=== PATIENT | female | born 1990 | race Caucasian/White ===

== ENCOUNTER 2023-08-17 08:15 | Inpatient (IN) ==
[2023-08-17] MEDS: Lactated Ringers 1000 ml BAG 1,000 ML IV ONE ×2 (08:46→11:12)
[2023-08-17] MEDS: Ondansetron 4 mg VIAL 2 MG/ML 2 ml VIAL IV ONE (08:49)
[2023-08-17] MEDS ORDERED: LORazepam 2 mg VIAL 1 ml IV PUSH SCH (09:00)
[2023-08-17 09:04] LABS: Hematocrit 43.2 % (35-45); Hemoglobin 14.4 g/dL (11.5-14.3); Red Blood Count 3.97 10^6/uL (3.63-4.92)
[2023-08-17 09:05] LABS: Mean Platelet Volume 8.4 fL (7.5-11.2); Platelet Count 160 10^3/uL (150-450); Red Cell Distribution Width 18.6 % (12-17)
[2023-08-17] MEDS: LORazepam 2 MG/ML 1 mL Syringe IV SCH (09:06)
[2023-08-17 09:18] LABS: INR 0.97 (0.83-1.13)
[2023-08-17 09:30] LABS: High Sens Troponin Baseline 4 pg/mL (<15); Mean Corpuscular Hemoglobin 36.2 pg (27-33); Mean Corpuscular Hgb Conc 33.3 g/dL (31-36); Mean Corpuscular Volume 108.7 fL (80-97)
[2023-08-17 09:32] LABS: ABS Lymphocytes 0.2 10^3/uL (1.0-4.8); ABS Neutrophils 5.8 10^3/uL (1.5-7.6); ABS Nucleated RBC 0.01 10^3/ul; Lymphocyte % 3.1 %; Nucleated Red Blood Cells % 0.2 %/100WBC (0.0-0.8)
[2023-08-17 09:50] LABS: ALT 73 U/L (7-52); AST 146 U/L (13-39); Alcohol, S < 13 mg/dL (<13); Alkaline Phosphatase 97 U/L (35-149); Anion Gap 38 mmol/L (2-16); Blood Urea Nitrogen 11 mg/dL (6-24); CO2 Carbon Dioxide 11 mmol/L (22-32); Calcium 10.3 mg/dL (8.6-10.3); Chloride 87 mmol/L (101-111); Creatinine, Serum 1.45 mg/dL (0.51-0.95); Glucose 221 mg/dL (70-100); Lipase 198 U/L (11.0-82.0); Magnesium 1.9 mg/dL (1.9-2.7); Potassium 4.9 mmol/L (3.5-5.0); Sodium 136 mmol/L (135-145); Total Bilirubin 1.3 mg/dL (0.2-1.0); Total Protein 9.9 g/dL (6.4-8.9); eGFR CKD-EPI 49.5 (>60)
[2023-08-17 10:00] LABS: Albumin 6.7 g/dL (3.2-5.2); Albumin/Globulin Ratio 2.1 (1-3); Globulin 3.2 g/dL (2-4)
[2023-08-17 10:23] LABS: High Sensitivity Troponin 1 Hr 4 pg/mL (<15)
[2023-08-17 10:48] LABS: Acetaminophen < 15 mcg/mL; Salicylate < 2.50 mg/dL (<30)
[2023-08-17 12:14] LABS: LDH 333 U/L (140-271)
[2023-08-17 12:20] LABS: Venous Bicarbonate HCO3 18.1 mmol/L (24-28)
[2023-08-17] MEDS: D5LR 1000 ml BAG 1,000 ML IV SCH (12:44)
[2023-08-17] MEDS ORDERED: Ondansetron 4 mg VIAL 2 MG/ML 2 ml VIAL IV PRN (12:55)
[2023-08-17] MEDS ORDERED: Senna TAB 8.6 mg TAB PO PRN (17:30)
[2023-08-17] MEDS ORDERED: Polyethylene Glycol 3350 17 GM PACKET PO PRN (17:31)
[2023-08-17 18:44] LABS: Albumin 4.5 g/dL (3.2-5.2); Albumin/Globulin Ratio 1.8 (1-3); Creatinine, Serum 0.69 mg/dL (0.51-0.95); Globulin 2.5 g/dL (2-4); Potassium 3.9 mmol/L (3.5-5.0); Total Bilirubin 1.2 mg/dL (0.2-1.0); eGFR CKD-EPI 118.9 (>60)
[2023-08-18 04:24] LABS: ABS Lymphocytes 0.8 10^3/uL (1.0-4.8); ABS Monocytes 0.4 10^3/uL (0.0-0.9); ABS Neutrophils 3.1 10^3/uL (1.5-7.6); ABS Nucleated RBC 0.01 10^3/ul; Eosinophil % 0.6 %; Hematocrit 30.9 % (35-45); Hemoglobin 10.5 g/dL (11.5-14.3); Lymphocyte % 18.1 %; Mean Corpuscular Hemoglobin 36.4 pg (27-33); Mean Corpuscular Hgb Conc 34.1 g/dL (31-36); Mean Corpuscular Volume 106.7 fL (80-97); Mean Platelet Volume 8.2 fL (7.5-11.2); Nucleated Red Blood Cells % 0.2 %/100WBC (0.0-0.8); Platelet Count 105 10^3/uL (150-450); Red Cell Distribution Width 17.9 % (12-17); White Blood Count 4.3 10^3/uL (3.8-11.8)
[2023-08-18 05:49] LABS: Albumin 4.1 g/dL (3.2-5.2); Albumin/Globulin Ratio 2.1 (1-3); Calcium 8.9 mg/dL (8.6-10.3); Creatinine, Serum 0.49 mg/dL (0.51-0.95); Magnesium 1.5 mg/dL (1.9-2.7); Potassium 3.3 mmol/L (3.5-5.0); Total Bilirubin 1.3 mg/dL (0.2-1.0); Total Protein 6.1 g/dL (6.4-8.9); eGFR CKD-EPI 129.1 (>60)
[2023-08-18] MEDS: Potassium Chlor 20 meq TAB.ER PO ONE (06:38)
[2023-08-18] MEDS: Magnesium Sulfate 2 gm BAG 2 GM/50 ML BAG IVPB ONE (06:47)
[2023-08-18] MEDS: KCL 20 MEQ/100 ML IVPREMIX 20 MEQ/100 ML BAG IV SCH (07:46)
[2023-08-18] MEDS: Magnesium Sulfate IV 1GM/100ML 1 GM/100 ML BAG IV ONE (08:25)
[2023-08-18] MEDS: Benzocaine/Menthol LOZ MT PRN (09:25)
[2023-08-18] MEDS: Iohexol 300 (CONTRAST) 10 ML SDV IV ONE (10:57)
[2023-08-18 11:17] VITALS: BP 123/96
== END 2023-08-18 13:05 | disposition home or self-care (01) | DRG 775 ==
LOC: ED 08:15 → EDHOLD 12:14 → ICU 15:22
PROVIDERS: ADMIT Internal Medicine Critical Care Medicine; ATTEND Internal Medicine Critical Care Medicine